=== PATIENT | male | born 1980 | race Two or more races ===

== ENCOUNTER 2016-12-24 05:50 | Inpatient (IN) | payer OTHER ==
[~2016-12-24] VITALS: Ht 170.2 cm; Wt 120.2 kg
[~2016-12-24 05:50] MED LIST: AMLODIPINE BESY10 MG PO; BUPROPION HCL150 M2 PO; BUPROPION XL150 MG PO; CHLORDIAZEPOXID25 MG PO; DEPAKOTE500 MG PO; GABAPENTIN600 MG PO; KEPPRA500 MG PO; LABETALOL HCL100 MG PO; LATUDA120 MG PO; LATUDA80 MG PO; LISINOPRIL40 MG PO; LORAZEPAM1 MG PO; LOSARTAN-HCTZ1 EAC2 PO; LUNESTA3 MG PO; MIGRAINE RELIE1 EAC2 PO; MIRTAZAPINE15 MG PO; MOTRIN IB200 MG PO; NICOTINE PATCH1 EACH TD; NORVASC10 MG PO; PRINIVIL20 MG PO; PROBIOTIC1 EAC1 PO; PROTONIX40 MG PO; SEROQUEL12.5 MG PO; SEROQUEL50 MG PO; ULTRAM50 MG PO; VIIBRYD40 MG PO; WELLBUTRIN SR100 MG PO; WELLBUTRIN SR200 MG PO; ZOFRAN4 MG PO; ZOLOFT50 MG PO
[2016-12-24 06:14] LABS: HEMATOCRIT 53.3 % (38.0-50.0); MCH 28.7 PG (29.0-34.0); MCHC 34.9 G/DL (30.0-36.0); MCV 82.4 FL (86-99); PLATELET COUNT 221 K/uL (156-360); RBC DIS.WIDTH-CV 13.7 % (11.8-14.6); RBC DIS.WIDTH-SD 40.9 % (39-53); RED BLOOD COUNT 6.47 M/uL (4.00-5.50); WHITE BLOOD COUNT 8.4 K/uL (4.1-10.2)
[2016-12-24 06:23] LABS: CHLORIDE 93 mEq/L (99-109); POTASSIUM 2.8 mEq/L (3.7-5.4); SODIUM 137 mEq/L (136-147)
[2016-12-24 06:25] LABS: GLUCOSE 112 mg/dL (70-99)
[2016-12-24 06:26] LABS: ANION GAP 21 MEQ/L (2-14)
[2016-12-24 06:27] LABS: TOTAL BILIRUBIN 1.8 mg/dL (0.0-1.0)
[2016-12-24 06:28] LABS: ALKALINE PHOSPHATASE 74 IU/L (3-129)
[2016-12-24 06:29] LABS: GFR ESTIMATE (CALCULATED) > 59 mL/min/
[2016-12-24 06:30] LABS: UREA NITROGEN (BUN) 6 mg/dL (9-23)
[2016-12-24 06:32] LABS: LIPASE 51 U/L (1.0-51.0)
[2016-12-24 07:49] LABS: C DIFF TOXIN POSITIVE (NEGATIVE)
[2016-12-24 07:51] LABS: PROBE CHECK PASS
[2016-12-24] MEDS ORDERED: PRAZOSIN HCL2 MG PO (08:52)
[2016-12-24] MEDS ORDERED: BUSPAR15 MG PO (08:52)
[2016-12-24] MEDS ORDERED: VIIBRYD40 MG PO (08:53)
[2016-12-24] MEDS ORDERED: TEMAZEPAM15 MG PO (08:54)
[2016-12-24] MEDS ORDERED: HYDRALAZINE HCL25 MG PO (08:54)
[2016-12-24 09:33] LABS: ADD MIUA? NO; BILIRUBIN NEGATIVE; BLOOD NEGATIVE; COLOR STRAW ((YELLOW)); GLUCOSE (STRIP) NEGATIVE; KETONES 20; LEUKOCYTES NEGATIVE; NITRITE NEGATIVE; PROTEIN (STRIP) NEGATIVE; SPECIFIC GRAVITY 1.018 (1.000-1.030); UCUL ADDED? NO; UROBILINOGEN 0.2 MG/DL (0.2-1.0)
[2016-12-24] MEDS ORDERED: ATARAX,VISTARIL25 MG PO (10:43)
[2016-12-24] MEDS ORDERED: SEROQUEL200 MG PO (10:43)
[2016-12-24] MEDS ORDERED: LABETALOL HCL100 MG PO (10:44)
[2016-12-24 11:35] LABS: TROP-I INTERPRETATION NEGATIVE; TROPONIN-I < 0.01 ng/mL (0.0-0.30)
[2016-12-24 17:01] VITALS: BP 128/76
[2016-12-24 23:11] VITALS: BP 152/997
[2016-12-25] VITALS (7 sets, daily range): BP systolic 106–130; BP diastolic 54–91
[2016-12-25 07:47] LABS: EOSINOPHIL (%) 4.1 % (0-5); EOSINOPHIL COUNT 0.2 K/uL (0-0.3); IMMATURE GRANULOCYTE (%) 0.2 % (0.0-0.7); INSTRUMENT ABS NEUTROPHIL CT 2.4 K/uL; MCH 29.3 PG (29.0-34.0); MCHC 35.1 G/DL (30.0-36.0); MCV 83.5 FL (86-99); MEAN PLAT.VOLUME 10.1 uM^3 (9.0-12.4); MONOCYTE (%) 16.9 % (3-12); MONOCYTE COUNT 0.7 K/uL (0-0.8); NEUTROPHIL (%) 55.3 % (45-76); NEUTROPHIL COUNT 2.4 K/uL (1.8-6.4); PLATELET COUNT 155 K/uL (156-360); RBC DIS.WIDTH-CV 13.6 % (11.8-14.6); RBC DIS.WIDTH-SD 41.4 % (39-53)
[2016-12-25 07:48] LABS: RED BLOOD COUNT 5.15 M/uL (4.00-5.50); WHITE BLOOD COUNT 4.4 K/uL (4.1-10.2)
[2016-12-25 08:09] LABS: CHLORIDE 102 mEq/L (99-109); SODIUM 140 mEq/L (136-147)
[2016-12-25 08:11] LABS: GLUCOSE 98 mg/dL (70-99)
[2016-12-25 08:12] LABS: ANION GAP 11 MEQ/L (2-14)
[2016-12-25 08:15] LABS: GFR ESTIMATE (CALCULATED) > 59 mL/min/; UREA NITROGEN (BUN) 3 mg/dL (9-23)
[2016-12-26 07:40] VITALS: BP 132/87
[2016-12-26 07:47] LABS: BASOPHIL COUNT 0.1 K/uL (0-0.1); EOSINOPHIL (%) 4.8 % (0-5); EOSINOPHIL COUNT 0.2 K/uL (0-0.3); HEMATOCRIT 46.5 % (38.0-50.0); IMMATURE GRANULOCYTE (%) 0.4 % (0.0-0.7); INSTRUMENT ABS NEUTROPHIL CT 2.6 K/uL; LYMPHOCYTE COUNT 1.3 K/uL (1.0-2.8); MCH 29.1 PG (29.0-34.0); MCHC 34.6 G/DL (30.0-36.0); MCV 84.1 FL (86-99); MEAN PLAT.VOLUME 10.1 uM^3 (9.0-12.4); MONOCYTE COUNT 0.8 K/uL (0-0.8); NEUTROPHIL (%) 52.3 % (45-76); NEUTROPHIL COUNT 2.6 K/uL (1.8-6.4); PLATELET COUNT 172 K/uL (156-360); RBC DIS.WIDTH-CV 13.8 % (11.8-14.6); RBC DIS.WIDTH-SD 42.8 % (39-53); RED BLOOD COUNT 5.53 M/uL (4.00-5.50)
[2016-12-26 07:52] LABS: ALKALINE PHOSPHATASE 64 IU/L (3-129); ANION GAP 11 MEQ/L (2-14); CHLORIDE 102 MEQ/L (99-109); GFR ESTIMATE (CALCULATED) > 59 mL/min/; GLUCOSE 89 mg/dL (70-99); POTASSIUM 3.3 MEQ/L (3.7-5.4); SAMPLE HEMOLYSIS CHECK 0; SAMPLE ICTERIC CHECK 0; SAMPLE LIPEMIA CHECK 0; SODIUM 139 MEQ/L (136-147); UREA NITROGEN (BUN) 2 mg/dL (9-23)
[2016-12-26 11:35] VITALS: BP 110/60
[2016-12-26 16:05] VITALS: BP 120/60
[2016-12-26 23:56] VITALS: BP 143/88
[2016-12-27 07:08] VITALS: BP 128/90
[2016-12-27 08:43] LABS: BASOPHIL COUNT 0.1 K/uL (0-0.1); EOSINOPHIL (%) 6.4 % (0-5); EOSINOPHIL COUNT 0.3 K/uL (0-0.3); HEMATOCRIT 44.4 % (38.0-50.0); IMMATURE GRANULOCYTE (%) 0.2 % (0.0-0.7); INSTRUMENT ABS NEUTROPHIL CT 2.2 K/uL; MCH 29.5 PG (29.0-34.0); MCHC 34.5 G/DL (30.0-36.0); MCV 85.5 FL (86-99); MEAN PLAT.VOLUME 9.6 uM^3 (9.0-12.4); MONOCYTE (%) 17.3 % (3-12); MONOCYTE COUNT 0.7 K/uL (0-0.8); NEUTROPHIL (%) 51.5 % (45-76); NEUTROPHIL COUNT 2.2 K/uL (1.8-6.4); PLATELET COUNT 162 K/uL (156-360); RBC DIS.WIDTH-SD 43.9 % (39-53); RED BLOOD COUNT 5.19 M/uL (4.00-5.50); WHITE BLOOD COUNT 4.2 K/uL (4.1-10.2)
[2016-12-27 09:10] LABS: ALKALINE PHOSPHATASE 63 IU/L (3-129); ANION GAP 12 MEQ/L (2-14); CHLORIDE 100 MEQ/L (99-109); GFR ESTIMATE (CALCULATED) > 59 mL/min/; GLUCOSE 81 mg/dL (70-99); POTASSIUM 3.4 MEQ/L (3.7-5.4); SAMPLE HEMOLYSIS CHECK 0; SAMPLE ICTERIC CHECK 0; SAMPLE LIPEMIA CHECK 0; SODIUM 139 MEQ/L (136-147); TOTAL BILIRUBIN 0.9 MG/DL (0.0-1.0); UREA NITROGEN (BUN) 2 mg/dL (9-23)
[2016-12-27 16:45] VITALS: BP 135/89
[2016-12-27 23:35] VITALS: BP 136/76
[2016-12-27 23:47] VITALS: BP 93/59
[2016-12-28 01:38] VITALS: BP 122/87
[2016-12-28 07:22] VITALS: BP 137/87
[2016-12-28 08:31] LABS: HEMATOCRIT 45.9 % (38.0-50.0); MCH 28.9 PG (29.0-34.0); MCHC 33.8 G/DL (30.0-36.0); MCV 85.5 FL (86-99); MEAN PLAT.VOLUME 9.4 uM^3 (9.0-12.4); PLATELET COUNT 159 K/uL (156-360); RBC DIS.WIDTH-CV 13.7 % (11.8-14.6); RBC DIS.WIDTH-SD 42.9 % (39-53); RED BLOOD COUNT 5.37 M/uL (4.00-5.50); WHITE BLOOD COUNT 4.4 K/uL (4.1-10.2)
[2016-12-28 08:42] LABS: CHLORIDE 103 mEq/L (99-109); SODIUM 140 mEq/L (136-147)
[2016-12-28 08:43] LABS: POTASSIUM 4.2 mEq/L (3.7-5.4)
[2016-12-28 08:44] LABS: GLUCOSE 90 mg/dL (70-99)
[2016-12-28 08:45] LABS: ANION GAP 10 MEQ/L (2-14)
[2016-12-28 08:48] LABS: GFR ESTIMATE (CALCULATED) > 59 mL/min/
[2016-12-28 08:49] LABS: UREA NITROGEN (BUN) 3 mg/dL (9-23)
[2016-12-28 16:02] VITALS: BP 118/59
[2016-12-28 23:07] VITALS: BP 135/81
[2016-12-29 07:10] VITALS: BP 149/92
[2016-12-29] MEDS ORDERED: NICOTINE PATCH1 EAC2 TD (07:23)
[2016-12-29] MEDS ORDERED: VANCOCIN 250 M250 MG PO (07:23)
[2016-12-29] MEDS ORDERED: FAMOTIDINE20 MG PO (07:23)
[2016-12-29 08:26] LABS: BASOPHIL COUNT 0.1 K/uL (0-0.1); EOSINOPHIL (%) 5.6 % (0-5); EOSINOPHIL COUNT 0.2 K/uL (0-0.3); HEMATOCRIT 46.2 % (38.0-50.0); IMMATURE GRANULOCYTE (%) 0.5 % (0.0-0.7); INSTRUMENT ABS NEUTROPHIL CT 2.1 K/uL; MCH 29.3 PG (29.0-34.0); MCHC 34.4 G/DL (30.0-36.0); MCV 85.2 FL (86-99); MEAN PLAT.VOLUME 9.5 uM^3 (9.0-12.4); MONOCYTE (%) 16.7 % (3-12); MONOCYTE COUNT 0.7 K/uL (0-0.8); NEUTROPHIL (%) 51.3 % (45-76); NEUTROPHIL COUNT 2.1 K/uL (1.8-6.4); PLATELET COUNT 157 K/uL (156-360); RBC DIS.WIDTH-CV 13.4 % (11.8-14.6); RBC DIS.WIDTH-SD 42.1 % (39-53); RED BLOOD COUNT 5.42 M/uL (4.00-5.50); WHITE BLOOD COUNT 4.1 K/uL (4.1-10.2)
[2016-12-29 09:04] LABS: ALKALINE PHOSPHATASE 59 IU/L (3-129); ANION GAP 10 MEQ/L (2-14); CHLORIDE 102 MEQ/L (99-109); GFR ESTIMATE (CALCULATED) > 59 mL/min/; GLUCOSE 80 mg/dL (70-99); POTASSIUM 4.3 MEQ/L (3.7-5.4); SAMPLE HEMOLYSIS CHECK 0; SAMPLE ICTERIC CHECK 0; SAMPLE LIPEMIA CHECK 0; SODIUM 137 MEQ/L (136-147); TOTAL BILIRUBIN 0.8 MG/DL (0.0-1.0); UREA NITROGEN (BUN) 7 mg/dL (9-23)
== END 2016-12-29 09:40 | disposition home or self-care (01) | DRG 372 ==
LOC: EME 05:50 → 5EAST 09:02 → EDOF 09:02 → 5EAST 14:10
PROVIDERS: Emergency Medicine; Nurse Practitioner Adult Health; Pediatrics
DX: A04.7 Enterocolitis due to Clostridium difficile (principal); E87.6 Hypokalemia; E86.0 Dehydration; K21.9 Gastro-esophageal reflux disease without esophagitis; I10 Essential (primary) hypertension; F32.9 Major depressive disorder, single episode, unspecified; F41.9 Anxiety disorder, unspecified; F17.210 Nicotine dependence, cigarettes, uncomplicated; E66.01 Morbid (severe) obesity due to excess calories; Z68.41 Body mass index [BMI] 40.0-44.9, adult
CPT/HCPCS: 74177; 80048; 80053; 81003; 82150; 83690; 84484; 85025; 85027; 87045; 87046; 87086; 87493; 87506; 93005; 99281; 99285; J1650; J2270; J2405; J3010; J3475; J3480; J7030; J7040; J7050; Q0177; S0030

== ENCOUNTER 2017-02-06 20:12 | Emergency (ER) | payer OTHER ==
[~2017-02-06] VITALS: Ht 170.2 cm; Wt 120.2 kg
[~2017-02-06 20:12] MED LIST changes: +ATARAX,VISTARIL25 MG PO; +BUSPAR15 MG PO; +FAMOTIDINE20 MG PO; +HYDRALAZINE HCL25 MG PO; +NICOTINE PATCH1 EAC2 TD; +PRAZOSIN HCL2 MG PO; +SEROQUEL200 MG PO; +TEMAZEPAM15 MG PO; +VANCOCIN 250 M250 MG PO
[2017-02-06 20:42] LABS: HEMATOCRIT 44.4 % (38.0-50.0); MCHC 34.5 G/DL (30.0-36.0); MCV 81.2 FL (86-99); MEAN PLAT.VOLUME 9.6 uM^3 (9.0-12.4); PLATELET COUNT 164 K/uL (156-360); RBC DIS.WIDTH-CV 13.2 % (11.8-14.6); RBC DIS.WIDTH-SD 38.5 % (39-53); RED BLOOD COUNT 5.47 M/uL (4.00-5.50); WHITE BLOOD COUNT 6.5 K/uL (4.1-10.2)
[2017-02-06 20:50] LABS: CHLORIDE 94 mEq/L (99-109); POTASSIUM 3.1 mEq/L (3.7-5.4); SODIUM 134 mEq/L (136-147)
[2017-02-06 20:52] LABS: GLUCOSE 132 mg/dL (70-99)
[2017-02-06 20:53] LABS: ANION GAP 15 MEQ/L (2-14)
[2017-02-06 20:54] LABS: TOTAL BILIRUBIN 2.3 mg/dL (0.0-1.0)
[2017-02-06 20:55] LABS: ALKALINE PHOSPHATASE 89 IU/L (3-129)
[2017-02-06 20:56] LABS: GFR ESTIMATE (CALCULATED) > 59 mL/min/
[2017-02-06 20:57] LABS: UREA NITROGEN (BUN) 6 mg/dL (9-23)
[2017-02-06 22:07] LABS: ADD MIUA? YES; BILIRUBIN NEGATIVE; BLOOD NEGATIVE; COLOR YELLOW ((YELLOW)); GLUCOSE (STRIP) NEGATIVE; KETONES NEGATIVE; LEUKOCYTES SMALL; NITRITE NEGATIVE; PROTEIN (STRIP) 30; SPECIFIC GRAVITY 1.008 (1.000-1.030)
[2017-02-06 22:19] LABS: BACTERIA RARE /HPF; EPITHELIAL CELLS RARE /HPF; HYALINE CASTS 0-5 /LPF; MUCUS NONE SEEN /LPF; RED BLOOD CELLS 0-5 /HPF (0-5); UCUL ADDED? NO
[2017-02-06 22:24] LABS: LIPASE 30 U/L (1.0-51.0)
[2017-02-07 02:13] VITALS: BP 153/105
== END 2017-02-07 02:14 | disposition home or self-care (01) ==
LOC: EME 20:12
PROVIDERS: Nurse Practitioner Family
DX: K29.00 Acute gastritis without bleeding (principal); T73.0XXA Starvation, initial encounter; E87.2 Acidosis; I10 Essential (primary) hypertension; F32.9 Major depressive disorder, single episode, unspecified; F17.200 Nicotine dependence, unspecified, uncomplicated; Z90.49 Acquired absence of other specified parts of digestive tract
CPT/HCPCS: 74177; 80053; 81003; 83605; 83690; 85027; 87040; 87493; 99281; 99285; J2270; J2405; J7030

== ENCOUNTER 2017-10-01 15:12 | Emergency (ER) | payer OTHER ==
[~2017-10-01] VITALS: Ht 170.2 cm; Wt 110.0 kg
[~2017-10-01 15:12] MED LIST changes: +AMBIEN10 MG PO; +PEPCID20 MG PO
[2017-10-01] MEDS ORDERED: KEPPRA1000 MG PO ×2 (15:22→20:03)
[2017-10-01] MEDS ORDERED: KEPPRA500 MG PO (15:22)
[2017-10-01 15:44] LABS: HEMATOCRIT 40.7 % (38.0-50.0); HEMOGLOBIN 14.4 G/DL (12.5-16.6); MCH 29.1 PG (29.0-34.0); MCHC 35.4 G/DL (30.0-36.0); MCV 82.2 FL (86-99); PLATELET COUNT 145 K/uL (156-360); RBC DIS.WIDTH-CV 16.9 % (11.8-14.6); RBC DIS.WIDTH-SD 49.8 % (39-53); RED BLOOD COUNT 4.95 M/uL (4.00-5.50)
[2017-10-01 15:53] LABS: CHLORIDE 100 mEq/L (99-109); SODIUM 138 mEq/L (136-147)
[2017-10-01 15:54] LABS: GLUCOSE 107 mg/dL (70-99)
[2017-10-01 15:58] LABS: CREATININE 0.7 mg/dL (0.6-1.3); GFR ESTIMATE (CALCULATED) > 59 mL/min/ (58.99-99999)
[2017-10-01 15:59] LABS: UREA NITROGEN (BUN) 7 mg/dL (9-23)
[2017-10-01 18:17] LABS: APPEARANCE SL.HAZY ((CLEAR)); BILIRUBIN NEGATIVE; BLOOD NEGATIVE; COLOR YELLOW ((YELLOW)); GLUCOSE (STRIP) NEGATIVE; KETONES 5; LEUKOCYTES NEGATIVE; NITRITE NEGATIVE; PROTEIN (STRIP) 30; SPECIFIC GRAVITY 1.011 (1.000-1.030); UROBILINOGEN 0.2 MG/DL (0.2-1.0)
[2017-10-01 18:23] LABS: BACTERIA RARE /HPF; EPITHELIAL CELLS RARE /HPF; MUCUS 3+ /LPF; RED BLOOD CELLS 0-5 /HPF (0-5); UCUL ADDED? NO; WHITE BLOOD CELLS 0-5 /HPF (0-5)
[2017-10-01 18:26] LABS: AMPHETAMINE NEGATIVE (500 ng/mL); BARBITURATES NEGATIVE (200 ng/mL); BENZODIAZEPINES NEGATIVE (150 ng/mL); BUPRENORPHINE NEGATIVE (10 ng/mL); COCAINE PRESUMPTIVE POSITIVE (150 ng/mL); METHADONE NEGATIVE (200 ng/mL); METHAMPHETAMINE NEGATIVE (500 ng/mL); OPIATES (MORPHINE) NEGATIVE (100 ng/mL); OXYCODONE NEGATIVE (100 ng/mL); PHENCYCLIDINE NEGATIVE (25 ng/mL); PROPOXYPHENE NEGATIVE (300 ng/mL); THC CANNABINOIDS NEGATIVE (50 ng/mL); TRICYCLIC ANTIDEPRESSANTS PRESUMPTIVE POSITIVE (300 ng/mL)
[2017-10-01 20:41] VITALS: BP 152/99
== END 2017-10-01 20:41 | disposition home or self-care (01) ==
LOC: EME 15:12
DX: G40.909 Epilepsy, unspecified, not intractable, without status epilepticus (principal); F14.90 Cocaine use, unspecified, uncomplicated; E86.0 Dehydration; M25.512 Pain in left shoulder; I10 Essential (primary) hypertension; F17.200 Nicotine dependence, unspecified, uncomplicated; Z86.73 Personal history of transient ischemic attack (TIA), and cerebral infarction without residual deficits; K21.9 Gastro-esophageal reflux disease without esophagitis; F32.9 Major depressive disorder, single episode, unspecified; F41.9 Anxiety disorder, unspecified
CPT/HCPCS: 70450; 73030; 80048; 81003; 84999; 85027; 99281; 99285

== ENCOUNTER → 2018-02-22 | Outpatient (CLI) | payer OTHER ==
[~2018-02-22] VITALS: Ht 172.7 cm; Wt 99.8 kg
[~2018-02-22] MED LIST changes: +ATARAX,VISTARIL50 MG PO; +EFFEXOR75 MG PO; +HALCION0.125 MG PO; +KEPPRA1000 MG PO; +MELATONIN10 M1 PO; +MINIPRESS1 MG PO; -PRAZOSIN HCL2 MG PO; -SEROQUEL200 MG PO; +SEROQUEL400 MG PO; +TOPAMAX100 MG PO; +TRILEPTAL300 MG PO
== END | disposition home or self-care (01) ==
LOC: AMB 12:41
DX: K29.70 Gastritis, unspecified, without bleeding (principal); K29.80 Duodenitis without bleeding; I10 Essential (primary) hypertension; Z86.19 Personal history of other infectious and parasitic diseases; E78.5 Hyperlipidemia, unspecified; K21.9 Gastro-esophageal reflux disease without esophagitis; E66.01 Morbid (severe) obesity due to excess calories; Z68.35 Body mass index [BMI] 35.0-35.9, adult; G40.909 Epilepsy, unspecified, not intractable, without status epilepticus; Z88.8 Allergy status to other drugs, medicaments and biological substances
CPT/HCPCS: 88305; 88342 TC; J2250; J3010